=== PATIENT | male | born 1970 ===

== ENCOUNTER 2016-12-19 13:56 | Emergency (ER) | payer MEDICAID ==
[2016-12-19 14:11] VITALS: BP 106/59; PULSE 72; RESP 18; TEMP 98; O2SAT 98
--- NOTE | 2016-12-19 14:15 | ED PDOC ---
HPI: General Adult Time Seen by Provider: 12/19/16 14:12 Chief Complaint (Nursing): Abnormal Skin Integrity Chief Complaint (Provider): hand injury History Per: Patient Additional Complaint(s): 46-year-old male presents to emergency department with swelling to left hand status post being stung by an insect about 4 hours prior to arrival. Patient felt an insect bite him but he is not sure what type of insect. Patient noticed immediate swelling to the affected area. He is not sure last tetanus shot. Past Medical History Reviewed: Historical Data, Nursing Documentation, Vital Signs Vital Signs: Last Vital Signs Temp 98 F 12/19/16 14:08 Pulse 72 12/19/16 14:08 Resp 18 12/19/16 14:08 BP 106/59 L 12/19/16 14:08 Pulse Ox 98 12/19/16 14:59 - Medical History PMH: Back Problems - Surgical History Surgical History: Hernia Repair (bilateral inguinal repair) - Family History Family History: States: No Known Family Hx - Living Arrangements Living Arrangements: With Family - Social History Current smoker - smoking cessation education provided: Yes Alcohol: Social Drugs: Denies - Home Medications Home Medications: Ambulatory Orders Medication Instructions Recorded Cephalexin [Keflex] 500 mg PO TID #21 capsule 12/19/16 predniSONE [Prednisone] 20 mg PO BID #10 tab 12/19/16 - Allergies Allergies/Adverse Reactions: Allergies Allergy/AdvReac Type Severity Reaction Status Date / Time No Known Allergies Allergy Verified 12/19/16 14:08 Review of Systems ROS Statement: Except As Marked, All Systems Reviewed And Found Negative Constitutional: Negative for: Fever Musculoskeletal: Positive for: Other (insect bite to left hand) Physical Exam - Reviewed Nursing Documentation Reviewed: Yes Vital Signs Reviewed: Yes - Physical Exam Appears: Positive for: Well, Non-toxic, No Acute Distress Skin: Negative for: Rash Eye Exam: Positive for: Normal appearance ENT: Negative for: Pharyngeal Erythema (or swelling) Cardiovascular/Chest: Positive for: Regular Rate, Rhythm Respiratory: Positive for: Normal Breath Sounds Extremity: Positive for: Other (Localized erythema noted to dorsum of left hand , full range of motion of all digits, no active drainage or bleeding) Neurologic/Psych: Positive for: Alert, Oriented - ECG O2 Sat by Pulse Oximetry: 98 Pulse Ox Interpretation: Normal Medical Decision Making Medical Decision Making: Impression: Insect bite left hand Plan: Ice pack Tetanus booster Prescription given for Keflex and prednisone. Patient was advised ice and elevate. Keep area clean and dry. Advised wound recheck in 2-3 days. He is aware he can return to ED at any time if acutely worse. Disposition - Clinical Impression Clinical Impression: Insect bite - Patient ED Disposition Is Patient to be Admitted: No Counseled Patient/Family Regarding: Diagnosis, Need For Followup, Rx Given - Disposition Referrals: [facility] [Outside] Disposition: Routine/Home Disposition Time: 14:58 Condition: STABLE Additional Instructions: Ice and elevate affected area. Take rx meds as directed. Wound re-check in 2- 3 days. Prescriptions: Cephalexin [Keflex] 500 mg PO TID #21 capsule predniSONE [Prednisone] 20 mg PO BID #10 tab Instructions: Insect Bite or Sting (ED)
[2016-12-19] MEDS: TDAP Vaccine 0.5 mL Syr IM ONE (15:00)
== END 2016-12-19 16:05 | disposition home or self-care (01) ==
LOC: H.ER 13:56
DX: T14.8 Other injury of unspecified body region (principal); W57.XXXA Bitten or stung by nonvenomous insect and other nonvenomous arthropods, initial encounter; Y92.89 Other specified places as the place of occurrence of the external cause